=== PATIENT | female | born 1955 | race Caucasian/White ===

== ENCOUNTER 2019-12-20 12:48 | Emergency (ER) | payer MEDICAID ==
[2019-12-20] MEDS ORDERED: HYDROmorphone 1 MG/ML Syringe IM ONE ×2 (13:43→15:24)
--- NOTE | 2019-12-20 14:09 | EDM.PDOC ---
ED HPI GENERAL MEDICAL PROBLEM - General Chief Complaint: Upper Extremity Injury/Pain Stated Complaint: fell at home right shoulder injury Time Seen by Provider: 12/20/19 13:30 Source of Information: Reports: Patient, EMS History Limitations: Reports: No Limitations - History of Present Illness INITIAL COMMENTS - FREE TEXT/NARRATIVE: 64-year-old female fell down approximately 12-15 stairs sustaining an injury to her right shoulder and right arm. This happened within the last hour. Some slight discomfort in her right ankle but mostly her symptoms are in her right arm. She has swelling and pain around the right shoulder, and slight deformity of the right wrist. Exquisite pain. Onset: Sudden Duration: Hour(s): (Within the last hour) Location: Reports: Upper Extremity, Right Associated Symptoms: Reports: Other (Slight right foot pain) Right Wrist Pain Score (Numeric/FACES): 8 - Related Data Allergies Allergy/AdvReac Type Severity Reaction Status Date / Time No Known Allergies Allergy Verified 12/20/19 13:19 Home Meds: Home Meds NK [No Known Home Meds] 12/20/19 [History] Social & Family History - Tobacco Use Tobacco Use Status *Q: Never Tobacco User Review of Systems - Review of Systems Review Of Systems: See Below Constitutional: Denies: Fever Respiratory: Denies: Shortness of Breath Cardiovascular: Denies: Chest Pain Genitourinary: Reports: No Symptoms Skin: Denies: Pallor, Bruising Neurological: Reports: No Symptoms Psychiatric: Reports: Anxiety ED EXAM, GENERAL - Physical Exam Exam: See Below Exam Limited By: No Limitations General Appearance: Alert, Moderate Distress Head: Atraumatic Neck: Non-Tender Respiratory/Chest: Lungs Clear Extremities: Other (Swelling and tenderness palpation over the anterior right shoulder, clavicle is nontender. Some tenderness around the elbow but no deformity. Swelling and deformity is present of the right wrist.) Course - Vital Signs Last Recorded V/S: Last Vital Signs Temp 97.0 F 12/20/19 13:18 Pulse 65 12/20/19 13:18 Resp 16 12/20/19 13:18 BP 145/70 H 12/20/19 13:18 Pulse Ox 100 12/20/19 13:18 - Orders/Labs/Meds Meds: Medications Discontinued Medications Generic Name Dose Route Start Last Admin Trade Name Freq PRN Reason Stop Dose Admin Fentanyl 200 mcg 12/20/19 17:06 12/20/19 17:15 Sublimaze IM 12/20/19 17:07 200 mcg ONETIME ONE Administration Hydromorphone HCl 1 mg 12/20/19 13:43 12/20/19 13:47 Dilaudid IM 12/20/19 13:44 1 mg ONETIME ONE Administration Hydromorphone HCl 1 mg 12/20/19 15:24 12/20/19 15:32 Dilaudid IM 12/20/19 15:25 1 mg ONETIME ONE Administration Ketorolac Tromethamine 30 mg 12/20/19 17:03 Toradol IVPUSH 12/20/19 17:04 ONETIME ONE Propofol 200 mg 12/20/19 16:23 12/20/19 16:59 Diprivan 20 Ml IVPUSH 12/20/19 16:24 200 mg ONETIME ONE Administration - Re-Assessments/Exams Free Text/Narrative Re-Assessment/Exam: 12/22/19 11:58 The ring was removed from her finger on her right hand. X-rays were obtained of the shoulder and right wrist, she has a minimally displaced surgical neck fracture of the humerus and a significantly displaced comminuted fracture of the distal radius and ulna of the right wrist. Initially given 0.5 mg of IV Dilaudid for pain control, needed an additional [address] Pritchett was consulted, and he assisted with reduction of the wrist fracture under propofol sedation. We do not have the correct external fixation equipment to do the surgery here, so Tiffany Campos was consulted and they agreed to see her tomorrow morning for surgery. While under propofol sedation, she was placed in a shoulder immobilizer. An additional 200 mcg of fentanyl was given prior to discharge because she was still having a lot of pain, especially in the shoulder. Dr. Dia agreed to see the patient tomorrow morning at 9 AM, she will go to [place] [facility] for surgical repair. Departure - Departure Time of Disposition: 17:27 Disposition: Home, Self-Care 01 Clinical Impression: Closed right humeral fracture Qualifiers: Encounter type: initial encounter Humerus Location: surgical neck Fracture morphology: unspecified fracture morphology Fracture alignment: displaced Qualified Code(s): S42.211A - Unspecified displaced fracture of surgical neck of right humerus, initial encounter for closed fracture Wrist fracture, right Qualifiers: Encounter type: initial encounter Fracture type: closed Qualified Code(s): S62.101A - Fracture of unspecified carpal bone, right wrist, initial encounter f or closed fracture - Discharge Information Instructions: Humerus Fracture Treated With Immobilization, [id number] Referrals: PCP,None [Primary Care Provider] - Forms: ED Department Discharge, ED Return to Work/School Form Care Plan Goals: Go to the orthopedic department at [facility] in [place] next to the hospital tomorrow morning, they are expecting you at 10 AM. Wear your shoulder immobilizer until you are seen tomorrow morning. Ibuprofen or naproxen along with a stronger pain medication as directed will be helpful. Nothing to eat or drink after midnight as discussed. Sepsis Event Note (ED) - Evaluation Sepsis Screening Result: No Definite Risk
--- NOTE | 2019-12-20 14:24 | CR ---
Humerus Rt CLINICAL HISTORY: Fall FINDINGS: There is a minimally displaced comminuted fracture the proximal humerus. There is no dislocation. There are degenerative changes in the AC joint IMPRESSION: Comminuted fracture proximal right humerus
--- NOTE | 2019-12-20 14:57 | CR ---
Wrist Comp Min 3V Rt CLINICAL HISTORY: Wrist pain, fall FINDINGS: There is a comminuted impacted fracture of the distal radius and fracture of the ulnar styloid. There is impingement of the ulna on the proximal carpal row. Impression: Displaced comminuted impacted fracture of the distal radius and fracture of the ulnar styloid
[2019-12-20] MEDS ORDERED: Propofol 200 MG/20 ML SDV IVPUSH ONE (16:23)
[2019-12-20] MEDS ORDERED: Ketorolac 30 MG/ML SDV IVPUSH ONE (17:03)
[2019-12-20] MEDS ORDERED: fentaNYL 100 MCG/2 ML SDV IVPUSH ONE (17:03)
[2019-12-20] MEDS ORDERED: fentaNYL 100 MCG/2 ML SDV IM ONE (17:06)
--- NOTE | 2019-12-25 16:31 | PCM.CONS ---
H&P History of Present Illness - General Date of Service: 12/20/19 Admit Problem/Dx: Comminuted, displaced, intra-articular right distal radius fracture and nondisplaced right proximal humerus fracture Source of Information: Patient History Limitations: Reports: No Limitations - History of Present Illness Onset of Symptoms: Reports: Today Location: Reports: Upper Extremity, Right Quality: Reports: Sharp, Stabbing Severity: Severe Improves with: Reports: Immobilization Worsens with: Reports: Movement Associated Symptoms: Reports: No Other Symptoms Right Wrist Pain Score (Numeric/FACES): 8 - Related Data Allergies/Adverse Reactions: Allergies Allergy/AdvReac Type Severity Reaction Status Date / Time No Known Allergies Allergy Verified 12/26/19 10:03 Home Medications: Home Meds NK [No Known Home Meds] 12/20/19 [History] Social & Family History - Tobacco Use Tobacco Use Status *Q: Never Tobacco User H&P Review of Systems - Review of Systems: Review Of Systems: Comprehensive ROS is negative, except as noted in HPI. Exam - Exam Exam: See Below - Vital Signs Vital Signs: Last Vital Signs Temp 36.1 C 12/20/19 13:18 Pulse 65 12/20/19 13:18 Resp 16 12/20/19 13:18 BP 145/70 H 12/20/19 13:18 Pulse Ox 100 12/20/19 13:18 - Exam Extremities: Arm Pain Peripheral Pulses: 1+: Radial (R), 2+: Radial (L) Skin: Warm, Dry, Intact Neurological: Cranial Nerves Intact Neuro Extensive - Mental Status: Alert, Oriented x3, Normal Mood/Affect, Normal Cognition, Memory Intact Neuro Extensive - Motor, Sensory, Reflexes: CN II-XII Intact Psychiatric: Alert, Normal Affect, Normal Mood Physical Exam Comments:: Right shoulder pain with any motion of arm, no deformity, right wrist with radial angulation, swelling, N/V intact Sepsis Event Note - Evaluation Sepsis Screening Result: No Definite Risk Consult PN Assessment/Plan Procedures: Procedures BREAST TOMOSYNTHESIS BI (02/07/19) MANUAL THERAPY 1/> REGIONS (09/14/18) PT EVAL LOW COMPLEX 20 MIN (08/15/18) SCR MAMMO BI INCL CAD (02/07/19) THERAPEUTIC EXERCISES (09/14/18) (1) Distal radius fracture, right SNOMED Code(s): 006117865 Code(s): S52.501A - UNSP FRACTURE OF THE LOWER END OF RIGHT RADIUS, INIT Qualifiers: Encounter type: initial encounter Fracture type: closed Fracture morphology: other intra-articular Qualified Code(s): S52.571A - Other intraarticular fracture of lower end of right radius, initial encounter for closed fracture (2) Closed right humeral fracture SNOMED Code(s): 37379822 Code(s): S42.301A - UNSP FRACTURE OF SHAFT OF HUMERUS, RIGHT ARM, INIT Qualifiers: Encounter type: initial encounter Humerus Location: surgical neck Fracture morphology: unspecified fracture morphology Fracture alignment: nondisplaced Qualified Code(s): S42.214A - Unspecified nondisplaced fracture of surgical neck of right humerus, initial encounter for closed fracture Problem List Initiated/Reviewed/Updated: Yes Plan: After conscious sedation traction is applied to the right wrist and the radial and volar angulation are reduced and a sugar tong splint is applied. No attempt was made to obtain anatomic reduction of the fracture since the comminuted nature of the fracture would not allow reduction to be maintained in a splint. she and her are instructed on the importance of elevation of the hand/wrist. Shoulder immobilizer is provide for the humerus fracture. No surgical intervention is anticipated for the humerus. It is my opinion that this fracture would be best treated with an external fixator or spanning plate and possible limited internal fixation. Unfortunately neither the fixator or spanning plate are available at this facility. Recommend that she be referred to a facility that can provide care in an expedited manor.
== END 2019-12-20 17:27 | disposition home or self-care (01) ==
LOC: JP.ED 12:48
DX: S52.611A Displaced fracture of right ulna styloid process, initial encounter for closed fracture (principal); S52.501A Unspecified fracture of the lower end of right radius, initial encounter for closed fracture; W10.9XXA Fall (on) (from) unspecified stairs and steps, initial encounter; Y92.009 Unspecified place in unspecified non-institutional (private) residence as the place of occurrence of the external cause
CPT/HCPCS: 25605; 73060; 73110; 96372; 99152; 99283; J1170; J2704; J3010

== ENCOUNTER 2019-12-28 05:57 | Day surgery (SDC) | payer MEDICAID ==
[2019-12-28] MEDS ORDERED: Nozin Nasal Sanitizer NASBOTH ONE (06:30)
[2019-12-28] MEDS ORDERED: Lactated Ringers 1,000 ML IV SCH (06:30)
[2019-12-28] MEDS ORDERED: Bupivacaine 0.5% 50 ML MDV ONE (06:47)
[2019-12-28] MEDS ORDERED: ceFAZolin 2 GM in Premix Bag 1 BAG IV ONE (07:30)
[2019-12-28] MEDS ORDERED: Dexamethasone 4 MG/ML SDV ONE (07:34)
[2019-12-28] MEDS ORDERED: Propofol 200 MG/20 ML SDV ONE (07:34)
[2019-12-28] MEDS ORDERED: Midazolam 1 MG/ML 2 ML SDV ONE (07:34)
[2019-12-28] MEDS ORDERED: Ondansetron 4 MG/2 ML SDV ONE (07:34)
[2019-12-28] MEDS ORDERED: fentaNYL 100 MCG/2 ML SDV ONE ×3 (07:34→09:27)
[2019-12-28] MEDS ORDERED: Morphine 2 MG/ML SYRINGE IVPUSH ONE (09:03)
[2019-12-28] MEDS ORDERED: Acetaminophen/oxyCODONE 325-5 MG Tab PO PRN (09:44)
--- NOTE | 2020-01-02 15:24 | OR ---
DATE OF PROCEDURE: 12/28/2019 SURGEON: Prashanth Pritchett MD PREOPERATIVE DIAGNOSIS: Comminuted, displaced intra-articular fracture, right distal radius, and nondisplaced distal ulna fracture. POSTOPERATIVE DIAGNOSIS: Comminuted, displaced intra-articular fracture, right distal radius, and nondisplaced distal ulna fracture. PROCEDURE: Closed reduction and application of external fixator, right wrist. ANESTHESIA: General. INDICATIONS: Jeffry is a 64-year-old female who sustained a significant fall approximately one week ago resulting in a comminuted, displaced fracture of her right distal radius and essentially nondisplaced fracture of the distal ulna as well as a nondisplaced fracture of the proximal humerus. She was seen in the emergency room where the wrist was partially reduced and placed in a sugar-tong splint. She was referred for surgical intervention and probable external fixator or spanning plate as neither hardware options were available at that time. Due to some miscommunication after the initial consultation at another facility, further surgery was not scheduled for her. She then contacted us for further care. Arrangements were made for an external fixator set to be brought in and she now presents for application of external fixator on the right wrist with possible limited open reduction and/or pinning. Risks, benefits, and potential complications were discussed. DESCRIPTION OF PROCEDURE: After adequate anesthesia was obtained, patient was placed supine with a tourniquet about the upper arm. Right arm was prepped and draped in a sterile fashion. A tourniquet was placed but was not utilized during the case. Area over the second metacarpal was marked with the drill guide and 2 small stab incisions were made longitudinally just slightly radial. Blunt dissection carried down to the metacarpal. A self-drilling self-tapping pin was then placed under fluoroscopic guidance in the proximal of the two sites obtaining 3 cortices going into the third metacarpal. Second pin was placed parallel using the guide through both cortices of the second metacarpal. Position on the radius was identified and again 2 small incisions were made and blunt dissection carried down to the radius. A drill guide was placed over the radius and 2 self- drilling self- tapping pins were placed through both cortices and position confirmed using fluoroscopy. A carbon fiber evelio was then connected to the pins. The wrist was reduced with longitudinal traction and manipulation of the radial styloid and position confirmed with fluoroscopy. A very small stab incision was made over the dorsal aspect of the wrist radial to the palmaris longus and blunt dissection carried down to a large displaced cortical fragment. A Annelise clamp was used to manipulate the fragment into a reduced position, and once this was achieved, the clamps were tightened down to the connecting evelio. Final position was evaluated on AP, lateral, and oblique angles with fluoroscopy. Reduction was adequate and all connections were re- tightened. Wounds were irrigated and 3-0 nylon suture was used to close the skin around the pins. Pin sites were dressed with Xeroform gauze, 4x4s, wrapped with cast padding and an Xander bandage. The patient tolerated procedure well. There were no complications. Taken from the operating room in stable condition. Prashanth Pritchett MD /[id number] MTDD
== END 2019-12-28 11:37 | disposition home or self-care (01) ==
LOC: JP.SDS 05:57
PROVIDERS: ATTEND Specialist
DX: S52.571A Other intraarticular fracture of lower end of right radius, initial encounter for closed fracture (principal); S52.601A Unspecified fracture of lower end of right ulna, initial encounter for closed fracture; Z01.812 Encounter for preprocedural laboratory examination; Z20.828 Contact with and (suspected) exposure to other viral communicable diseases
CPT/HCPCS: 25606; 25651; 36415; 76000; 80053; 85027; 87635; A9270; J1100; J2250; J2270; J2405; J2704; J3010; J3490; J7120; U0002

== ENCOUNTER 2020-10-20 06:55 | Day surgery (SDC) | payer MEDICAID ==
[2020-10-20] MEDS ORDERED: Sodium Chloride 0.9% 1,000 ML IV SCH (07:30)
[2020-10-20] MEDS ORDERED: Midazolam 1 MG/ML 2 ML SDV ONE (07:57)
[2020-10-20] MEDS ORDERED: Ondansetron 4 MG/2 ML SDV ONE (07:57)
[2020-10-20] MEDS ORDERED: fentaNYL 100 MCG/2 ML SDV ONE (07:57)
[2020-10-20] MEDS ORDERED: Propofol 200 MG/20 ML SDV ONE (07:57)
--- NOTE | 2020-10-21 08:55 | OR ---
DATE OF PROCEDURE: 10/20/2020 SURGEON: Luther Hernández MD PROCEDURE: Colonoscopy. FINDINGS: Normal colonoscopy. PREOPERATIVE DIAGNOSIS: Family history of colorectal cancer. POSTOPERATIVE DIAGNOSIS: Family history of colorectal cancer. RISKS: Risks, benefits, alternatives, and limitations including, but not limited to infection, bleeding, perforation, false positives and false negatives were explained to the patient and she wished to proceed. PROCEDURE IN DETAIL: The patient was placed in left lateral decubitus position. Digital rectal exam was performed without abnormality. Scope was introduced and advanced atraumatically to the ileocecal valve. A photo was taken of the appendiceal orifice. Scope was brought back to the ascending, transverse, descending colon, and retroflexed. No evidence of old or new blood. No masses. No polyps. No diverticulosis. No abnormalities on retroflexion. Greater than 8 minutes was spent removing the scope. The prep was acceptable, approximately 90% of the luminal surface could be seen. The patient tolerated the procedure well. Luther Hernández MD /[id number]
== END 2020-10-20 09:45 | disposition home or self-care (01) ==
LOC: JP.SDS 06:55
PROVIDERS: ATTEND Surgery
DX: Z12.11 Encounter for screening for malignant neoplasm of colon (principal); Z80.0 Family history of malignant neoplasm of digestive organs; E66.9 Obesity, unspecified; Z68.44 Body mass index [BMI] 60.0-69.9, adult
CPT/HCPCS: 45378; J2250; J2405; J2704; J3010; J7030